=== PATIENT | female | born 1965 | race Caucasian/White ===

== ENCOUNTER 2017-12-05 10:30 | Outpatient (CLI) | payer OTHER | END 2017-12-05 20:00 | disposition home or self-care (01) | LOC: SMA 10:30 | DX: Z12.31 Encounter for screening mammogram for malignant neoplasm of breast (principal) | CPT/HCPCS: 77067 ==

== ENCOUNTER 2019-02-10 10:57 | Outpatient (CLI) | payer OTHER | END 2019-02-10 20:53 | disposition home or self-care (01) | LOC: SMA 10:57 | DX: Z12.31 Encounter for screening mammogram for malignant neoplasm of breast (principal) | CPT/HCPCS: 77067 ==